=== PATIENT | male | born 1980 | race Hispanic/Latino ===

== ENCOUNTER 2021-02-23 13:57 | Emergency (ER) | payer OTHER ==
--- NOTE | 2021-02-23 16:42 | RAD REPORT ---
EXAM DESCRIPTION: RAD - Chest Pa And Lat (2 Views) - 02/23/2021 4:16 pm CLINICAL HISTORY: COUGH, COVID positive COMPARISON: None TECHNIQUE: Frontal and lateral views of the chest were obtained. FINDINGS: The lungs are underinflated with patchy airspace opacification peripherally distributed. G iven the history, pattern is consistent with a mild COVID-19 pneumonia. No diffuse pulmonary edema. Heart size is normal and central vasculature is within normal limits. No pleural effusion or pneumo thorax seen. No acute bony finding noted. No aortic abnormality. IMPRESSION: Mild bilateral COVID-19 pneumonia pattern.
[2021-02-23] MEDS ORDERED: ACETAMINOPHEN 500 MG TAB ONE (18:47)
--- NOTE | 2021-02-23 18:57 | ER ---
Nurse's Notes [facility] Name: Brodie Borja Age: 40 yrs Sex: Male : 1980 Arrival Date: 02/23/2021 Time: 14:03 Bed DX2 Private MD: Diagnosis: Other viral pneumonia;SARS-associated coronavirus as the cause of diseases classified elsewhere Presentation: 02/23 14:31 Chief complaint: Patient states: S\E\S started 02/17/2021. Cough, SOB, fever, N/V/D. ca1 Coronavirus screen: Client denies travel out of the [place] in the last 14 days. chills, congestion, cough unrelated to allergies, diarrhea, fever, nausea, vomiting. Client presents with at least one sign or symptom that may indicate coronavirus-19. Standard/surgical mask placed on the client. Provider contacted for isolation considerations. Ebola Screen: Patient negative for fever greater than or equal to 101.5 degrees Fahrenheit, and additional compatible Ebola Virus Disease symptoms Patient denies exposure to infectious person. Patient denies travel to an Ebola-affected area in the 21 days before illness onset. No symptoms or risks identified at this time. Initial Sepsis Screen: Does the patient meet any 2 criteria? No. Patient's initial sepsis screen is negative. Does the patient have a suspected source of infection? No. Patient's initial sepsis screen is negative. Risk Assessment: Do you want to hurt yourself or someone else? Patient reports no desire to harm self or others. Onset of symptoms was February 17, 2021. 14:31 Method Of Arrival: Ambulatory ca1 14:31 Acuity: AGA 4 ca1 Historical: - Allergies: 14:32 No Known Allergies; ca1 - Home Meds: 14:32 None [Active]; ca1 - PMHx: 14:32 None; ca1 - PSHx: 14:32 hernia repair; ca1 - Immunization history:: Client reports having NOT received the Covid vaccine. - Social history:: Smoking status: Patient denies any tobacco usage or history of. Screenin:07 Abuse screen: Denies threats or abuse. Denies injuries from another. Nutritional ss screening: No deficits noted. Tuberculosis screening: Never had TB. Fall Risk None identified. Assessment: 18:07 General: Appears uncomfortable, ill, Behavior is calm, cooperative, Reports chills for ss fever for feeling ill for fatigue for. Pain: Denies pain. Neuro: Level of Consciousness is awake, alert, obeys commands, Oriented to person, place, time, situation, Gathering Machine Feeder are equal bilaterally. Cardiovascular: Capillary refill < 3 seconds is brisk in bilateral fingers Rhythm is sinus tachycardia. Respiratory: Airway is patent Respiratory effort is even, unlabored, Respiratory pattern is regular, symmetrical, Breath sounds are clear bilaterally. Respiratory: Reports cough that is hacking, Airway is patent Trachea midline Respiratory effort is even, unlabored, Respiratory pattern is regular, symmetrical. GI: Reports diarrhea, nausea, vomiting. : No signs and/or symptoms were reported regarding the genitourinary system. Derm: Skin is pink, warm \T\ dry. normal. Musculoskeletal: Circulation, motion, and sensation intact. Range of motion: intact in all extremities, Swelling absent. 19:24 Reassessment: Patient appears in no apparent distress at this time. Patient and/or ss family updated on plan of care and expected duration. Pain level reassessed. Patient is alert, oriented x 3, equal unlabored respirations, skin warm/dry/pink. Patient states feeling better. Patient states symptoms have improved. Vital Signs: 14:31 BP 137 / 80; Pulse 131; Resp 19 S; Temp 98.9(O); Pulse Ox 99% on R/A; Weight 97.98 kg ca1 (M); Height 5 ft. 8 in. (172.72 cm) (R); 18:23 Pulse 129; Resp 20; Temp 100.1(O); Pulse Ox 97% on R/A; ss 18:52 Pulse 122; Pulse Ox 98% on R/A; ss 14:31 Body Mass Index 32.84 (97.98 kg, 172.72 cm) ca1 ED Course: 14:03 Patient arrived in ED. rg4 14:32 Triage completed. ca1 14:32 Arm band placed on right wrist. ca1 14:38 [facility]. cp 14:38 Jf Babb MD is Attending Physician. cp 14:52 Patient has correct armband on for positive identification. mh5 14:52 EKG done, by ED staff, reviewed by Kofi ECHEVARRIA. 5 16:14 XRAY Chest Pa And Lat (2 Views) In Process Unspecified. EDMS 18:23 Carisa Earl RN is Primary Nurse. ss 19:16 Primary Nurse role handed off by Carisa Earl RN mw2 19:23 Carisa Earl RN is Primary Nurse. ss 19:23 No provider procedures requiring assistance completed. Patient did not have IV access ss during this emergency room visit. Administered Medications: 18:25 Drug: Tylenol 1000 mg Route: PO; ss 19:24 Follow up: Response: No adverse reaction ss 18:44 Drug: Zofran (Ondansetron) 4 mg Route: PO; ss 19:24 Follow up: Response: No adverse reaction; Nausea is decreased ss Outcome: 18:57 Discharge ordered by MD. cp 19:23 Discharged to home ambulatory. ss 19:23 Condition: good 19:23 Discharge instructions given to patient, family, Instructed on discharge instructions, follow up and referral plans. medication usage, Demonstrated understanding of instructions, follow-up care, medications, Prescriptions given X x 5 19:24 Patient left the ED. ss Signatures: Dispatcher [employer] EDAL Carisa Earl RN RN Kofi Hartmann, Cristina Tompkins cp 4 Sumi Borja 5 Wilbert Melendrez mw2 Rima Osman RN RN ca1 Corrections: (The following items were deleted from the chart) 14:33 14:32 PSHx: None; ca1 ca1
--- NOTE | 2021-02-23 18:57 | EDPHYS ---
Physician Documentation [facility] Name: Brodie Borja Age: 40 yrs Sex: Male : 1980 Arrival Date: 02/23/2021 Time: 14:03 Bed DX2 Private MD: ED Physician Jf Babb HPI: 02/23 14:45 This 40 yrs old Male presents to ER via Ambulatory with complaints of Fever, cp Breathing Difficulty. 14:45 The patient or guardian reports cough, that is intermittent. Onset: The cp symptoms/episode began/occurred 5 day(s) ago. Associated signs and symptoms: Pertinent positives: fever, nausea, sore throat, vomiting, Pertinent negatives: chest pain, abdominal pain. 14:45 The patient reports fever, not measured (subjective). Patient reports family member cp recently tested positive for COVID-19. Historical: - Allergies: 14:32 No Known Allergies; ca1 - Home Meds: 14:32 None [Active]; ca1 - PMHx: 14:32 None; ca1 - PSHx: 14:32 hernia repair; ca1 - Immunization history:: Client reports having NOT received the Covid vaccine. - Social history:: Smoking status: Patient denies any tobacco usage or history of. ROS: 14:50 Constitutional: Positive for body aches, poor PO intake, Negative for fever. cp 14:50 Eyes: Negative for injury, pain, redness, and discharge. cp 14:50 ENT: Negative for drainage from ear(s), ear pain, sore throat, difficulty swallowing, difficulty handling secretions. 14:50 Cardiovascular: Negative for chest pain, edema, palpitations. 14:50 Respiratory: Positive for cough, with no reported sputum, shortness of breath, on exertion. Negative for wheezing. 14:50 Abdomen/GI: Positive for nausea and vomiting, Negative for abdominal pain, diarrhea, constipation. 14:50 Back: Negative for pain at rest, pain with movement. 14:50 Neuro: Negative for altered mental status, dizziness, headache, weakness. 14:50 All other systems are negative. Exam: 14:50 ECG was reviewed by the Attending Physician. cp 14:55 Constitutional: The patient appears in no acute distress, alert, awake, cp non-diaphoretic, non-toxic, well developed, well nourished. 14:55 Head/Face: Normocephalic, atraumatic. cp 14:55 Eyes: Periorbital structures: appear normal, Conjunctiva: normal, no exudate, no injection, Sclera: no appreciated abnormality, Lids and lashes: appear normal, bilaterally. 14:55 ENT: External ear(s): are unremarkable, Ear canal(s): are normal, clear, TM's: dullness, bilaterally, Nose: is normal, Mouth: Lips: moist, Oral mucosa: moist, Posterior pharynx: is normal, airway is patent, no erythema, no exudate. 14:55 Neck: ROM/movement: is normal, is supple, no meningismus, no nuchal rigidity. 14:55 Chest/axilla: Inspection: normal, Palpation: is normal, no crepitus, no tenderness. 14:55 Cardiovascular: Rate: tachycardic, Rhythm: regular, Edema: is not appreciated, JVD: is not appreciated. 14:55 Respiratory: the patient does not display signs of respiratory distress, Respirations: normal, no use of accessory muscles, no retractions, labored breathing, is not present, Breath sounds: are clear throughout, no decreased breath sounds, no stridor, no wheezing. 14:55 Abdomen/GI: Exam negative for discomfort, distension, guarding, Inspection: abdomen appears normal. 14:55 Back: pain, is absent, ROM is normal. 14:55 Neuro: Orientation: to person, place \\T\\ time. Mentation: is normal. Vital Signs: 14:31 BP 137 / 80; Pulse 131; Resp 19 S; Temp 98.9(O); Pulse Ox 99% on R/A; Weight 97.98 kg ca1 (M); Height 5 ft. 8 in. (172.72 cm) (R); 18:23 Pulse 129; Resp 20; Temp 100.1(O); Pulse Ox 97% on R/A; ss 18:52 Pulse 122; Pulse Ox 98% on R/A; ss 14:31 Body Mass Index 32.84 (97.98 kg, 172.72 cm) ca1 MDM: 16:00 Differential diagnosis: bronchitis, viral Infection, bacterial infection, bronchitis, cp pneumonia gastroenteritis, meningitis. 18:10 Patient medically screened. cp 18:56 Data reviewed: vital signs, nurses notes, lab test result(s), EKG, radiologic studies, cp plain films. 18:56 Test interpretation: by ED physician or midlevel provider: ECG, plain radiologic cp studies. Counseling: I had a detailed discussion with the patient and/or guardian regarding: the historical points, exam findings, and any diagnostic results supporting the discharge/admit diagnosis, lab results, radiology results, to return to the emergency department if symptoms worsen or persist or if there are any questions or concerns that arise at home. Response to treatment: the patient's symptoms have mildly improved after treatment. ED course: VS noted. Patient appears non-toxic and no signs of respiratory distress. Will discharge to home for continued monitoring. 02/23 14:34 Order name: COVID-19 : Document "Date of Symptom Onset" if Symptomatic. ca1 02/23 14:34 Order name: Flu ca1 02/23 14:35 Order name: Influenza Screen (A ; Complete Time: 15:57 [facility] 02/23 15:57 Interpretation: Reviewed. 02/23 14:37 Order name: Strep; Complete Time: 15:57 ca1 02/23 15:57 Interpretation: Reviewed. 02/23 15:35 Order name: Throat Culture [facility] 02/23 14:39 Order name: EKG; Complete Time: 14:39 cp 02/23 14:39 Order name: EKG - Nurse/Tech; Complete Time: 14:49 02/23 15:56 Order name: XRAY Chest Pa And Lat (2 Views); Complete Time: 17:53 02/23 16:45 Order name: SARS-COV-2 RT PCR; Complete Time: 17:53 [facility] 02/23 17:53 Interpretation: Abnormal: SARSCOV2 RT PCR POSITIVE. 02/23 18:10 Order name: Vital Signs: please update; Complete Time: 18:23 cp EC:50 Rate is 131 beats/min. Rhythm is regular. FL interval is normal. QRS interval is cp normal. QT interval is normal. T waves are Inverted in lead aVR. Interpreted by me. Reviewed by me. Administered Medications: 18:25 Drug: Tylenol 1000 mg Route: PO; ss 19:24 Follow up: Response: No adverse reaction ss 18:44 Drug: Zofran (Ondansetron) 4 mg Route: PO; ss 19:24 Follow up: Response: No adverse reaction; Nausea is decreased ss Disposition: 02/24 07:32 Co-signature as Attending Physician, Jf Babb MD I agree with the assessment and kdr plan of care. Disposition Summary: 02/23/21 18:57 Discharge Ordered Location: Home cp Problem: new cp Symptoms: have improved cp Condition: Stable cp Diagnosis - Other viral pneumonia cp - SARS-associated coronavirus as the cause of diseases classified elsewhere cp Followup: cp - With: Private Physician - When: 2 - 3 days - Reason: Worsening of condition Discharge Instructions: - Discharge Summary Sheet cp - COVID-19 cp - Things to Know about the COVID-19 Pandemic - [facility] cp - 10 Things You Can Do to Manage Your COVID-19 Symptoms at Home - [facility] cp - COVID-19: Quarantine vs. Isolation - [facility] cp - Prevent the Spread of COVID-19 if You Are Sick - [facility] cp Forms: - Medication Reconciliation Form cp - Thank You Letter cp - Antibiotic Education cp - Prescription Opioid Use cp Prescriptions: - albuterol sulfate 90 mcg/actuation Inhalation HFA aerosol inhaler - inhale 2 puff by INHALATION route every 4-6 hours; 1 Inhaler; Refills: 0, cp Product Selection Permitted - Zofran 4 mg Oral Tablet - take 1 tablet by ORAL route every 12 hours As needed; 20 tablet; Refills: 0, cp Product Selection Permitted - Tessalon Perles 100 mg Oral Capsule - take 2 capsule by ORAL route every 8 hours As needed; 30 capsule; Refills: 0, cp Product Selection Permitted - Zithromax Z-Raul 250 mg Oral Tablet - take 1 tablet by ORAL route as directed for 5 days Day 1 - take two (2) tablets cp one time. Day 2, 3, 4 , 5 take one (1) tablet once daily.; 6 tablet; Refills: 0, Product Selection Permitted - Prednisone 20 mg Oral Tablet - take 2 tablets by ORAL route once daily for 5 days then take 1 tablet daily for cp 5 days; 15 tablet; Refills: 0, Product Selection Permitted Signatures: Dispatcher [employer] EDMS Jf Babb MD MD [facility] Carisa Earl RN RN ss Kofi Hartmann PA PA cp Rima Osman RN RN ca1 Corrections: (The following items were deleted from the chart) 02/23 14:33 14:32 PSHx: None; ca1 ca1 15:23 14:35 CORONAVIRUS ordered. EDMS EDMS 18:27 14:30 This 40 yrs old Male presents to ER via Ambulatory with complaints of cp Fever, Breathing Difficulty. cp
[2021-02-23] MEDS ORDERED: ONDANSETRON 4 MG (ODT) TAB ONE (19:06)
[2021-02-23 19:36] VITALS: BP 137/80
[2021-02-23 19:38] VITALS: TEMP 100.1
[2021-02-23 19:39] VITALS: O2SAT 98
--- NOTE | 2021-02-24 10:51 | EKG ---
Test Date: 2021-02-23 Test Time: 14:46:05 Elevator Tender: KATE MEASUREMENT RESULTS: Intervals: Rate: 131 CA: 142 QRSD: 80 QT: 294 QTc: 434 [place]: P: 70 CA: 142 QRS: 131 T: 25 INTERPRETIVE STATEMENTS: Sinus tachycardia Possible Left atrial enlargement Right axis deviation Abnormal ECG No previous ECG available for comparison Electronically Signed On 02-24-21 10:48:25 CDT by Darius Ordoñez
== END 2021-02-23 19:24 | disposition home or self-care (01) ==
LOC: ER 13:57
DX: U07.1 COVID-19 (principal); J12.89 Other viral pneumonia
CPT/HCPCS: 93005; 87070; 87081; 87804 ×2; 71046; 99284; U0003